=== PATIENT | male | born 1930 | race Caucasian/White ===

== ENCOUNTER 2017-05-13 10:13 | Emergency (ER) | payer OTHER ==
[~2017-05-13] VITALS: Ht 177.8 cm; Wt 71.4 kg
[2017-05-13 10:53] LABS: BASOPHIL (%) 0.1 % (0-1); EOSINOPHIL (%) 0 % (0-5); HEMATOCRIT 32.6 % (38.0-50.0); HEMOGLOBIN 11.1 G/DL (12.5-16.6); IMMATURE GRANULOCYTE (%) 0.4 % (0.0-0.7); LYMPHOCYTE (%) 32.8 % (15-42); LYMPHOCYTE COUNT 2.3 K/uL (1.0-2.8); MCH 31.8 PG (29.0-34.0); MCV 93.4 FL (86-99); MONOCYTE (%) 13.9 % (3-12); NEUTROPHIL (%) 52.8 % (45-76); NEUTROPHIL COUNT 3.8 K/uL (1.8-6.4); PLATELET COUNT 136 K/uL (156-360); RBC DIS.WIDTH-CV 14.3 % (11.8-14.6); RBC DIS.WIDTH-SD 48.5 % (39-53); RED BLOOD COUNT 3.49 M/uL (4.00-5.50); WHITE BLOOD COUNT 7.1 K/uL (4.1-10.2)
[2017-05-13 10:58] LABS: INTER. NORMALIZED RATIO 1.1
[2017-05-13 11:00] LABS: PTT 32.7 SEC (25-37)
[2017-05-13 11:02] LABS: CHLORIDE 107 mEq/L (99-109); POTASSIUM 4.4 mEq/L (3.7-5.4); SODIUM 142 mEq/L (136-147)
[2017-05-13 11:03] LABS: GLUCOSE 94 mg/dL (70-99)
[2017-05-13 11:07] LABS: CREATININE 1.1 mg/dL (0.6-1.3); GFR ESTIMATE (CALCULATED) > 59 mL/min/ (58.99-99999)
[2017-05-13 11:08] LABS: UREA NITROGEN (BUN) 22 mg/dL (9-23)
[2017-05-13 11:14] LABS: TROP-I INTERPRETATION NEGATIVE; TROPONIN-I < 0.01 ng/mL (0.0-0.30)
[2017-05-13] MEDS ORDERED: ZESTRIL10 MG PO (12:39)
[2017-05-13] MEDS ORDERED: LO-DOSE ASPIRIN81 M2 PO (12:39)
[2017-05-13] MEDS ORDERED: IRON325 M1 PO (12:39)
[2017-05-13] MEDS ORDERED: TYLENOL REGULA325 MG PO (12:40)
[2017-05-13] MEDS ORDERED: VITAMIN D31000 UNI2 PO (12:40)
[2017-05-13] MEDS ORDERED: SUPER B COMPL400 MCG PO (12:40)
[2017-05-13] MEDS ORDERED: MEDROL DOSEPAK4 MG PO (14:40)
[2017-05-13 15:02] VITALS: BP 160/80
== END 2017-05-13 15:04 | disposition home or self-care (01) ==
LOC: EME 10:13
PROVIDERS: Emergency Medicine
DX: G51.0 Bell's palsy (principal); G30.9 Alzheimer's disease, unspecified; F02.80 Dementia in other diseases classified elsewhere, unspecified severity, without behavioral disturbance, psychotic disturbance, mood disturbance, and anxiety; G93.89 Other specified disorders of brain; I10 Essential (primary) hypertension; Z79.82 Long term (current) use of aspirin; Z87.891 Personal history of nicotine dependence
CPT/HCPCS: 70450; 70551; 71045; 80048; 84484; 85025; 85610; 85730; 93005; 99281; 99285